=== PATIENT | male | born 1990 | race Caucasian/White ===

== ENCOUNTER 2016-08-23 11:07 | Emergency (ER) | payer MEDICAID ==
[2016-08-23] MEDS ORDERED: Ketorolac 60 MG/2 ML SDV IM ONE (11:54)
--- NOTE | 2016-08-23 12:03 | EDM.PDOC ---
ED HPI GENERAL MEDICAL PROBLEM - General Chief Complaint: Lower Extremity Injury/Pain Stated Complaint: PAIN IN LEFT ANKLE X 2 DAYS Time Seen by Provider: 08/23/16 11:50 Source of Information: Reports: Patient History Limitations: Reports: No Limitations - History of Present Illness INITIAL COMMENTS - FREE TEXT/NARRATIVE: History of present illness: [26-year-old male presenting with complaints of left ankle pain. Patient indicates that he has no trauma that he just was mowing the lawn yesterday and now he has significant ankle pain specifically to the posterior aspect right epiphyseal.] Review of systems: As per history of present illness and below otherwise all systems reviewed and negative. Past medical history: As per history of present illness and as reviewed below otherwise noncontributory. Surgical history: As per history of present illness and as reviewed below otherwise noncontributory. Social history: No reported history of drug or alcohol abuse. Family history: As per history of present illness and as reviewed below otherwise noncontributory. Physical exam: HEENT: Atraumatic, normocephalic, pupils reactive, negative for conjunctival pallor or scleral icterus, mucous membranes moist, throat clear, neck supple, nontender, trachea midline. Lungs: Clear to auscultation, breath sounds equal bilaterally, chest nontender. Heart: S1S2, regular, negative for clicks, rubs, or JVD. Abdomen: Soft, nondistended, nontender. Negative for masses or hepatosplenomegaly. Negative for costovertebral tenderness. Pelvis: Stable nontender. Genitourinary: Deferred. Rectal: Deferred. Extremities: Atraumatic, negative for cords or calf pain. Neurovascular unremarkable. Neuro: Awake, alert, oriented. Cranial nerves II through XII unremarkable. Cerebellum unremarkable. Motor and sensory unremarkable throughout. Exam nonfocal. Patient's Global assessment is benign ankle is atraumatic without any swelling, or ecchymosis patient indicates some amount of tenderness on palpation. Diagnostics: [X-ray of ankle] Therapeutics: [60 mg Toradol IM] Impression: [Ankle pain] Plan: [NSAIDs follow up with primary care provider] Definitive disposition and diagnosis as appropriate pending reevaluation and review of above. Left Ankle Pain Score (Numeric/FACES): 10 - Related Data Allergies Allergy/AdvReac Type Severity Reaction Status Date / Time No Known Allergies Allergy Verified 08/23/16 11:30 Home Meds: Home Meds . [No Known Home Meds] 08/23/16 [History] Past Medical History - Past Health History Medical/Surgical History: Denies Medical/Surgical History Social & Family History - Tobacco Use Smoking Status *Q: Never Smoker Second Hand Smoke Exposure: No - Caffeine Use Caffeine Use: Reports: Coffee, Soda - Recreational Drug Use Recreational Drug Use: No Review of Systems - Review of Systems Review Of Systems: See Below (See history of present illness) ED EXAM, GENERAL - Physical Exam Exam: See Below (History of present illness) Course - Vital Signs Last Recorded V/S: Last Vital Signs Temp 36.8 C 08/23/16 11:29 Pulse 80 08/23/16 11:29 Resp 18 08/23/16 11:29 BP 127/58 L 08/23/16 11:29 Pulse Ox 98 08/23/16 11:29 - Orders/Labs/Meds Meds: Medications Discontinued Medications Generic Name Dose Route Start Last Admin Trade Name Karin PRN Reason Stop Dose Admin Ketorolac Tromethamine 60 mg 08/23/16 11:54 08/23/16 12:01 Toradol IM 08/23/16 11:55 60 mg ONETIME ONE Administration Departure - Departure Time of Disposition: 13:00 Disposition: Home, Self-Care 01 Condition: good Clinical Impression: Ankle pain, left - Discharge Information Forms: ED Department Discharge Additional Instructions: The following information is given to patients seen in the emergency department who are being discharged to home. This information is to outline your options for follow-up care. We provide all patients seen in our emergency department with a follow-up referral. The need for follow-up, as well as the timing and circumstances, are variable depending upon the specifics of your emergency department visit. If you don't have a primary care physician on staff, we will provide you with a referral. We always advise you to contact your personal physician following an emergency department visit to inform them of the circumstance of the visit and for follow-up with them and/or the need for any referrals to a consulting specialist. The emergency department will also refer you to a specialist when appropriate. This referral assures that you have the opportunity for follow-up care with a specialist. All of these measure are taken in an effort to provide you with optimal care, which includes your follow-up. Under all circumstances we always encourage you to contact your private physician who remains a resource for coordinating your care. When calling for follow-up care, please make the office aware that this follow-up is from your recent emergency room visit. If for any reason you are refused follow-up, please contact the [facility] Emergency Department at and asked to speak to the emergency department charge nurse. Take medication as prescribed Follow-up with PCP in 1-2 days Return to ED as needed as discussed
--- NOTE | 2016-08-23 12:33 | CR ---
EXAMINATION: Left ankle HISTORY: Pain COMPARISON: None TECHNIQUE: 3 views FINDINGS/IMPRESSION: There is no acute osseous abnormality, dislocation, or fracture identified. Bon e mineralization and joint spaces are grossly preserved. Ankle mortise and talar dome appear intact.
[2016-08-23 13:14] VITALS: BP 121/68
== END 2016-08-23 13:13 | disposition home or self-care (01) ==
LOC: MW.ED 11:07
DX: M25.572 Pain in left ankle and joints of left foot (principal)
CPT/HCPCS: 73610; 96374; 99283; J1885

== ENCOUNTER 2017-07-03 16:02 | Emergency (ER) | payer MEDICAID, OTHER ==
[2017-07-03 16:28] VITALS: BP 136/79
[2017-07-03] MEDS ORDERED: Alum Hydrox/Mag Hydrox/Simeth 15 ML, Metoclopramide 5 MG, Lidocaine 2% 5 ML PO ONE ×3 (16:35)
--- NOTE | 2017-07-03 16:38 | EDM.PDOC ---
ED HPI GENERAL MEDICAL PROBLEM - General Chief Complaint: Abdominal Pain Stated Complaint: ABDOMINAL/CHEST PAIN Time Seen by Provider: 07/03/17 16:34 Source of Information: Reports: Patient, Family History Limitations: Reports: No Limitations - History of Present Illness INITIAL COMMENTS - FREE TEXT/NARRATIVE: HISTORY AND PHYSICAL: [] 27-year-old male presenting with esophageal type of History of Present Illness: Patient states he was treated for H. pylori last year ending treatment in June Today when he woke from his nap he experienced mid chest pain to the esophageal area same symptoms as previously when he had H. pylori bacteria []Patient works nights and was sleeping this morning and so when he awakened the pain began Review of Systems: As per history of present illness and below otherwise all systems reviewed and negative. Past medical history: As per history of present illness and as reviewed below otherwise noncontributory. Surgical history: As per history of present illness and as reviewed below otherwise noncontributory. Social history: No reported history of drug or alcohol abuse. Family history: As per history of present illness and as reviewed below otherwise noncontributory. Physical exam: Alert and oriented speaking well in full sentences without any shortness of breath HEENT: Atraumatic, normocehpalic, pupils reactive, negative for conjunctival pallor or scleral icterus, mucous membranes moist, throat clear, neck supple, nontender, trachea midline. Lungs: Clear to auscultation, breath sounds equal bilaterally, chest non tender. Heart: S1S2, regular, negative for clicks, rubs, or JVD. Abdomen: Soft, nondistended, tender to mid epigastric region. Negative for masses or hepatossplenmegaly. Negative for costovertebral tenderness. Pelvis: Stable nontender. Genitourinary: Deferred. Rectal: Deferred Extremities: Atraumatic, negative for cords or calf pain. Neurovascular unremarkable. Neuro: Awake, alert, oriented. Cranial nerves II through XII unremarkable. Cerebellum unremarkable. Motor and sensory unremarkable throughout. Exam nonfocal. Discussed with the patient and significant other that the H. pylori and lab work all looked very good. No signs of infection were present Diagnostics: []CBC CMP H. pylori Therapeutics: []GI cocktail Impression: []Epigastric pain Plan: []Discharged home Recommended Pepcid or them daily Follow-up with your primary care provider Dr. Mora Return to ER is directed Definitive disposition and diagnosis as appropriate pending reevaluation and review of above. Onset: Today, Sudden Duration: Hour(s): Location: Reports: Abdomen Quality: Reports: Same as Previous Episode Severity: Moderate esphogeal Pain Score (Numeric/FACES): 3 - Related Data Allergies Allergy/AdvReac Type Severity Reaction Status Date / Time No Known Allergies Allergy Verified 08/23/16 11:30 Home Meds: Home Meds Meloxicam 7.5 mg PO BID #30 tablet 08/23/16 [Rx] Past Medical History - Past Health History Medical/Surgical History: Denies Medical/Surgical History - Infectious Disease History Infectious Disease History: Reports: None Social & Family History - Family History Family Medical History: Noncontributory - Tobacco Use Smoking Status *Q: Never Smoker Second Hand Smoke Exposure: No - Caffeine Use Caffeine Use: Reports: Coffee, Energy Drinks - Recreational Drug Use Recreational Drug Use: Yes Drug Use in Last 12 Months: Yes Recreational Drug Type: Reports: Marijuana/Hashish Recreational Drug Use Frequency: Weekly ED ROS GENERAL - Review of Systems Review Of Systems: ROS reveals no pertinent complaints other than HPI. ED EXAM, GI/ABD - Physical Exam Exam: See Below (see dictation) Course - Vital Signs Last Recorded V/S: Last Vital Signs Temp 36.0 C 07/03/17 16:24 Pulse 60 07/03/17 16:24 Resp 16 07/03/17 16:24 BP 136/79 07/03/17 16:24 Pulse Ox 97 07/03/17 16:24 - Orders/Labs/Meds Labs: Laboratory Tests 07/03/17 07/03/17 07/03/17 Range/Units 17:02 17:02 17:02 WBC 8.91 (4.0-11.0) K/uL RBC 4.74 (4.50-5.90) M/uL Hgb 13.4 (13.0-17.0) g/dL Hct 40.1 (38.0-50.0) % MCV 84.6 (80.0-98.0) fL MCH 28.3 (27.0-32.0) pg MCHC 33.4 (31.0-37.0) g/dL RDW Std Deviation 39.8 (28.0-62.0) fl RDW Coeff of Jorden 13 (11.0-15.0) % Plt Count 237 (150-400) K/uL MPV 9.80 (7.40-12.00) fL Neut % (Auto) 64.9 (48.0-80.0) % Lymph % (Auto) 24.4 (16.0-40.0) % Blair % (Auto) 7.9 (0.0-15.0) % Eos % (Auto) 2.6 (0.0-7.0) % Baso % (Auto) 0.2 (0.0-1.5) % Neut # (Auto) 5.8 H (1.4-5.7) K/uL Lymph # (Auto) 2.2 (0.6-2.4) K/uL Blair # (Auto) 0.7 (0.0-0.8) K/uL Eos # (Auto) 0.2 (0.0-0.7) K/uL Baso # (Auto) 0.0 (0.0-0.1) K/uL Sodium 139 (136-148) mmol/L Potassium 3.9 (3.5-5.1) mmol/L Chloride 105 (98-107) mmol/L Carbon Dioxide 25.5 (21.0-32.0) mmol/L BUN 15 (7.0-18.0) mg/dL Creatinine 1.0 (0.8-1.3) mg/dL Est Cr Clr Drug Dosing 108.30 mL/min Estimated GFR (MDRD) > 60.0 ml/min Glucose 80 (74-106) mg/dL Calcium 9.2 (8.5-10.1) mg/dL Total Bilirubin 0.3 (0.2-1.0) mg/dL AST 24 (15-37) IU/L ALT 30 (14-63) IU/L Alkaline Phosphatase 50 (46-116) U/L Total Protein 7.3 (6.4-8.2) g/dL Albumin 4.1 (3.4-5.0) g/dL Globulin 3.2 (2.0-3.5) g/dL Albumin/Globulin Ratio 1.3 (1.3-2.8) H. pylori IgG Antibody NEGATIVE (NEG) Meds: Medications Discontinued Medications Generic Name Dose Route Start Last Admin Trade Name Freq PRN Reason Stop Dose Admin Al Hydroxide/Mg Hydroxide 15 0 ml 07/03/17 16:35 07/03/17 17:05 ml/ Metoclopramide HCl 5 mg/ PO 07/03/17 16:36 25 each Lidocaine HCl 5 ml ONETIME ONE Administration Departure - Departure Time of Disposition: 18:14 Disposition: Home, Self-Care 01 Condition: Good Clinical Impression: Esophagitis - Discharge Information Instructions: Esophagitis Referrals: PCP,None [Primary Care Provider] - Forms: ED Department Discharge Additional Instructions: The following information is given to patients seen in the emergency department who are being discharged to home. This information is to outline your options for follow-up care. We provide all patients seen in our emergency department with a follow-up referral. The need for follow-up, as well as the timing and circumstances, are variable depending upon the specifics of your emergency department visit. If you don't have a primary care physician on staff, we will provide you with a referral. We always advise you to contact your personal physician following an emergency department visit to inform them of the circumstance of the visit and for follow-up with them and/or the need for any referrals to a consulting specialist. The emergency department will also refer you to a specialist when appropriate. This referral assures that you have the opportunity for followup care with a specialist. All of these measure are taken in an effort to provide you with optimal care, which includes your followup. Under all circumstances we always encourage you to contact your private physician who remains a resource for coordinating your care. When calling for followup care, please make the office aware that this follow-up is from your recent emergency room visit. If for any reason you are refused follow-up, please contact the [facility] emergency department at and asked to speak to the emergency department charge nurse. He had epigastric pain could cause some esophagitis which is inflammation into the esophagus Please follow-up with your primary care provider Dr. Mora Have recommended Pepcid or proton pump inhibitor on a daily basis Return to the emergency department should your symptoms worsen in intensity history as directed and discussed
[2017-07-03 17:47] LABS: CHLORIDE,CL 105 mmol/L (98-107); SODIUM,NA 139 mmol/L (136-148)
== END 2017-07-03 18:35 | disposition home or self-care (01) ==
LOC: MW.ED 16:02
DX: K20.9 Esophagitis, unspecified (principal); Z79.899 Other long term (current) drug therapy
CPT/HCPCS: 36415; 80053; 85025; 86677; 99283; A9270

== ENCOUNTER 2017-09-18 08:06 | Emergency (ER) | payer MEDICAID ==
--- NOTE | 2017-09-18 08:39 | EDM.PDOC ---
ED HPI GENERAL MEDICAL PROBLEM - General Chief Complaint: Genitourinary Problem Stated Complaint: blood in urine Time Seen by Provider: 09/18/17 08:21 - History of Present Illness INITIAL COMMENTS - FREE TEXT/NARRATIVE: HISTORY AND PHYSICAL: History of present illness: The patient is a healthy 27y/o male who presents with one episode of seeing blood in his urine this morning when he woke up and went to the bathroom. The patient denies any trauma and has no fevers chills flank pain abdominal pain testicular pain or swelling and says that both at home and when he gave a urine sample here he had a slight burning sensation at the end of urination. He has no pressure with urination. He says he tries to hydrate and he is in a monogamous relationship. Patient has no other systemic complaints. Patient denies any history Review of systems: As per history of present illness and below otherwise all systems reviewed and negative. Past medical history: As per history of present illness and as reviewed below otherwise noncontributory. Surgical history: As per history of present illness and as reviewed below otherwise noncontributory. Social history: No reported history of drug or alcohol abuse. Family history: As per history of present illness and as reviewed below otherwise noncontributory. Physical exam: General: Well-developed well-nourished man who is nontoxic and ambulatory in the ED. Vital signs are reviewed by me. HEENT: Atraumatic, normocephalic, negative for conjunctival pallor or scleral icterus, mucous membranes moist, throat clear, neck supple, nontender, trachea midline. Lungs: Clear to auscultation, breath sounds equal bilaterally, chest nontender. Heart: S1S2, regular rate and rhythm no overt murmurs Abdomen: Soft, nondistended, nontender. . Negative for costovertebral tenderness. Pelvis: Deferred Genitourinary: Deferred. Rectal: Deferred. Extremities: Atraumatic, negative for cords or calf pain. Neurovascular unremarkable. Neuro: Awake, alert, oriented. Cranial nerves II through XII unremarkable. Cerebellum unremarkable. Motor and sensory unremarkable throughout. Exam nonfocal. Diagnostics: UA urine for STD testing urine culture It was discussed with the patient about testing for STDs and he is requesting that and comfortable with that Therapeutics: Rocephin and Zithromax I discussed with the patient my concerns and need for follow-up with provider in the clinic or urology. We discussed hydration and other potential causes and he will follow-up. Impression: Urethritis Definitive disposition and diagnosis as appropriate pending reevaluation and review of above. Penile Pain Score (Numeric/FACES): 2 - Related Data Allergies Allergy/AdvReac Type Severity Reaction Status Date / Time No Known Allergies Allergy Verified 08/23/16 11:30 Home Meds: Home Meds Meloxicam 7.5 mg PO BID #30 tablet 08/23/16 [Rx] Past Medical History - Past Health History Medical/Surgical History: Denies Medical/Surgical History - Infectious Disease History Infectious Disease History: Reports: None Social & Family History - Family History Family Medical History: Noncontributory - Tobacco Use Smoking Status *Q: Never Smoker - Caffeine Use Caffeine Use: Reports: Coffee, Energy Drinks - Recreational Drug Use Recreational Drug Use: Yes Drug Use in Last 12 Months: Yes Recreational Drug Type: Reports: Marijuana/Hashish Recreational Drug Use Frequency: Weekly ED ROS GENERAL - Review of Systems Review Of Systems: ROS reveals no pertinent complaints other than HPI. ED EXAM, GENERAL - Physical Exam Exam: See Below (see Dictation) Course - Vital Signs Last Recorded V/S: Last Vital Signs Temp 36.3 C 09/18/17 08:17 Pulse 77 09/18/17 08:17 Resp 18 09/18/17 08:17 BP 128/81 09/18/17 08:17 Pulse Ox 97 09/18/17 08:17 - Orders/Labs/Meds Orders: Active Orders 24 hr Category Date Time Status CHLAMYDIA AND GONORRHEA BY TMA Stat Lab 09/18/17 08:16 Received CULTURE URINE [RM] Stat Lab 09/18/17 08:51 Ordered UA W/MICROSCOPIC [URIN] Stat Lab 09/18/17 08:16 Ordered Azithromycin [Zithromax] Med 09/18/17 08:51 Once 1,000 mg PO ONETIME ONE cefTRIAXone [Rocephin] 250 mg Med 09/18/17 08:51 Ordered Lidocaine 1% [Xylocaine-MPF 1%] 1 ml IM ONETIME Medication Orders Azithromycin (Zithromax) 1,000 mg PO ONETIME ONE Stop: 09/18/17 08:52 Ceftriaxone Sodium 250 mg/ (Lidocaine HCl) 1 mls @ 1 mls/sec IM ONETIME ONE Stop: 09/18/17 08:52 Labs: Laboratory Tests 09/18/17 Range/Units 08:16 Urine Color YELLOW Urine Appearance CLEAR Urine pH 8.0 (5.0-8.0) Ur Specific Orr 1.020 (1.001-1.035) Urine Protein NEGATIVE (NEGATIVE) mg/dL Urine Glucose (UA) NEGATIVE (NEGATIVE) mg/dL Urine Ketones NEGATIVE (NEGATIVE) mg/dL Urine Occult Blood SMALL H (NEGATIVE) Urine Nitrite NEGATIVE (NEGATIVE) Urine Bilirubin NEGATIVE (NEGATIVE) Urine Urobilinogen 0.2 (<2.0) EU/dL Ur Leukocyte Esterase NEGATIVE (NEGATIVE) Urine RBC 4-7 (0-2/HPF) Urine WBC 0-1 (0-5/HPF) Ur Epithelial Cells RARE (NONE-FEW) Urine Bacteria RARE (NEGATIVE) Meds: Medications Generic Name Dose Route Start Last Admin Trade Name Freq PRN Reason Stop Dose Admin Azithromycin 1,000 mg 09/18/17 08:51 Zithromax PO 09/18/17 08:52 ONETIME ONE Ceftriaxone Sodium 250 mg/ 1 mls @ 1 mls/sec 09/18/17 08:51 Lidocaine HCl IM 09/18/17 08:52 ONETIME ONE Departure - Departure Time of Disposition: 08:52 Disposition: Home, Self-Care 01 Condition: Good Clinical Impression: Urethritis - Discharge Information Referrals: PCP,None [Primary Care Provider] - Forms: ED Department Discharge Additional Instructions: The following information is given to patients seen in the emergency department who are being discharged to home. This information is to outline your options for follow-up care. We provide all patients seen in our emergency department with a follow-up referral. The need for follow-up, as well as the timing and circumstances, are variable depending upon the specifics of your emergency department visit. If you don't have a primary care physician on staff, we will provide you with a referral. We always advise you to contact your personal physician following an emergency department visit to inform them of the circumstance of the visit and for follow-up with them and/or the need for any referrals to a consulting specialist. The emergency department will also refer you to a specialist when appropriate. This referral assures that you have the opportunity for followup care with a specialist. All of these measure are taken in an effort to provide you with optimal care, which includes your followup. Under all circumstances we always encourage you to contact your private physician who remains a resource for coordinating your care. When calling for followup care, please make the office aware that this follow-up is from your recent emergency room visit. If for any reason you are refused follow-up, please contact the emergency department at and ask to speak to the emergency department charge nurse. [facility]- Internal Medicine and [facility] [address] [place] [id number] [facility]-Urology [address] [place] [id number] Push hydration and take antibiotics as directed until they're finished. Please call and schedule a follow-up appointment with your provider in the clinic or with our urologist for further care and evaluation. Return to ER as needed and as discussed. Continue to monitor the symptoms and discuss this with your provider in the clinic - My Orders Last 24 Hours: My Active Orders 09/18/17 08:16 CHLAMYDIA AND GONORRHEA BY TMA Stat UA W/MICROSCOPIC [URIN] Stat 09/18/17 08:51 CULTURE URINE [RM] Stat Azithromycin [Zithromax] 1,000 mg PO ONETIME ONE cefTRIAXone [Rocephin] 250 mg Lidocaine 1% [Xylocaine-MPF 1%] 1 ml IM ONETIME - Assessment/Plan Last 24 Hours: My Active Orders 09/18/17 08:16 CHLAMYDIA AND GONORRHEA BY TMA Stat UA W/MICROSCOPIC [URIN] Stat 09/18/17 08:51 CULTURE URINE [RM] Stat Azithromycin [Zithromax] 1,000 mg PO ONETIME ONE cefTRIAXone [Rocephin] 250 mg Lidocaine 1% [Xylocaine-MPF 1%] 1 ml IM ONETIME
[2017-09-18] MEDS ORDERED: cefTRIAXone 250 MG in Lidocaine 1% 1 ML IM ONE (08:51)
[2017-09-18] MEDS ORDERED: Azithromycin 250 MG Tab PO ONE (08:51)
[2017-09-18 09:24] VITALS: BP 113/72
== END 2017-09-18 09:41 | disposition home or self-care (01) ==
LOC: MW.ED 08:06
DX: N34.2 Other urethritis (principal)
CPT/HCPCS: 81001; 87086; 87491; 87591; 99283; A9270

== ENCOUNTER 2018-11-14 10:03 | Emergency (ER) | payer MEDICAID ==
--- NOTE | 2018-11-14 10:06 | EDM.PDOC ---
ED HPI GENERAL MEDICAL PROBLEM - General Stated Complaint: both hands feel numb Time Seen by Provider: 11/14/18 10:03 Source of Information: Reports: Patient History Limitations: Reports: No Limitations - History of Present Illness INITIAL COMMENTS - FREE TEXT/NARRATIVE: HISTORY AND PHYSICAL: History of present illness: Patient is a 28-year-old male who presents to the ED today with concern of left hand numbness and starting numbness in the right. 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 Patient states the left hand is worse and that the sensation is in all of his fingers except his pinky. Patient states last night the symptoms started and his right hand in the same distribution. Patient states he notices his symptoms are worse at night and when he is using the tooth at work. Patient denies any trauma or injury to these areas. Patient denies any health history or any other symptoms or concerns. Patient denies fever, chills, chest pain, shortness of breath, or cough. Denies headache, neck stiff ness, change in vision, syncope, or near syncope. Denies nausea, vomiting, abdominal pain, diarrhea, constipation, or dysuria. Has not noted any blood in urine or stool. Patient has been eating and drinking appropriately. Review of systems: As per history of present illness and below otherwise all systems reviewed and negative. Past medical history: As per history of present illness and as reviewed below otherwise noncontributory. Surgical history: As per history of present illness and as reviewed below otherwise noncontributory. Social history: See social history for further information Family history: As per history of present illness and as reviewed below otherwise noncontributory. Physical exam: General: Patient is alert, oriented, and in no acute distress. Patient sitting comfortably on exam table. HEENT: Atraumatic, normocephalic, pupils equal and reactive bilaterally, negative for conjunctival pallor or scleral icterus, mucous membranes moist, TMs normal bilaterally, throat clear, neck supple, nontender, trachea midline. No drooling or trismus noted. No meningeal signs. No hot potato voice noted. Lungs: Clear to auscultation, breath sounds equal bilaterally, chest nontender. Heart: S1S2, regular rate and rhythm without overt murmur Abdomen: Soft, nondistended, nontender. Negative for masses or hepatosplenomegaly. Negative for costovertebral tenderness. Pelvis: Stable nontender. Genitourinary: Deferred. Rectal: Deferred. Skin: Intact, warm, dry. No lesions or rashes noted. Extremities: Atraumatic, negative for cords or calf pain. Neurovascular unremarkable. Positive Phalen and Tinnel sign bilaterally of upper extremities with reproducable symptoms in all fingers excluding both pinky fingers. Radial pulses are grossly intact bilaterally with capillary refill less than 2 seconds. Patient has full range of motion of bilateral upper extremities without pain or difficulty. Neuro: Awake, alert, oriented. Cranial nerves II through XII unremarkable. Cerebellum unremarkable. Motor and sensory unremarkable throughout. Exam nonfocal. Notes: Discussed the importance for follow-up with primary care provider. Voices understanding and is agreeable to plan of care. Denies any further questions or concerns at this time. Diagnostics: None Therapeutics: Cockup wrist splints Prescription: None Impression: Carpal tunnel, bilateral Plan: 1. Tylenol and/or Ibuprofen as directed for pain management or discomfort. Use the wrist splints as discussed. 2. Follow up with your primary care provider as discussed. Return to the ED as needed and as discussed. Definitive disposition and diagnosis as appropriate pending reevaluation and review of above. Bilateral Hand Pain Score (Numeric/FACES): 0 - Related Data Allergies Allergy/AdvReac Type Severity Reaction Status Date / Time No Known Allergies Allergy Verified 11/14/18 10:17 Home Meds: Home Meds . [No Known Home Meds] 11/14/18 [History] Past Medical History - Past Health History Medical/Surgical History: Denies Medical/Surgical History - Infectious Disease History Infectious Disease History: Reports: None Social & Family History - Family History Family Medical History: Noncontributory - Caffeine Use Caffeine Use: Reports: Coffee, Energy Drinks ED ROS GENERAL - Review of Systems Review Of Systems: ROS reveals no pertinent complaints other than HPI. ED EXAM, GENERAL - Physical Exam Exam: See Below (see dictation) Course - Vital Signs Last Recorded V/S: Last Vital Signs Temp 35.9 C 11/14/18 10:14 Pulse 78 11/14/18 10:14 Resp 18 11/14/18 10:14 BP 138/87 11/14/18 10:14 Pulse Ox 99 11/14/18 10:14 - Orders/Labs/Meds Orders: Active Orders 24 hr Category Date Time Status DME for Discharge [COMM] Stat Oth 11/14/18 10:20 Ordered Departure - Departure Time of Disposition: 10:21 Disposition: Home, Self-Care 01 Clinical Impression: Carpal tunnel syndrome, bilateral - Discharge Information Instructions: Carpal Tunnel Syndrome, [id number] Referrals: PCP,None [Primary Care Provider] - Additional Instructions: The following information is given to patients seen in the emergency department who are being discharged to home. This information is to outline your options for follow-up care. We provide all patients seen in our emergency department with a follow-up referral. The need for follow-up, as well as the timing and circumstances, are variable depending upon the specifics of your emergency department visit. If you don't have a primary care physician on staff, we will provide you with a referral. We always advise you to contact your personal physician following an emergency department visit to inform them of the circumstance of the visit and for follow-up with them and/or the need for any referrals to a consulting specialist. The emergency department will also refer you to a specialist when appropriate. This referral assures that you have the opportunity for follow-up care with a specialist. All of these measure are taken in an effort to provide you with optimal care, which includes your follow-up. Under all circumstances we always encourage you to contact your private physician who remains a resource for coordinating your care. When calling for follow-up care, please make the office aware that this follow-up is from your recent emergency room visit. If for any reason you are refused follow-up, please contact the [facility] Emergency Department at and asked to speak to the emergency department charge nurse. [facility] [address] [place] [address] [id number] [id number] 1. Tylenol and/or Ibuprofen as directed for pain management or discomfort. Use the wrist splints as discussed. 2. Follow up with your primary care provider as discussed. Return to the ED as needed and as discussed. - My Orders Last 24 Hours: My Active Orders 11/14/18 10:20 DME for Discharge [COMM] Stat - Assessment/Plan Last 24 Hours: My Active Orders 11/14/18 10:20 DME for Discharge [COMM] Stat
[2018-11-14 11:23] VITALS: BP 136/70
== END 2018-11-14 10:32 | disposition home or self-care (01) ==
LOC: MW.ED 10:03
DX: G56.03 Carpal tunnel syndrome, bilateral upper limbs (principal)
CPT/HCPCS: 99283

== ENCOUNTER 2023-02-28 19:13 | Emergency (ER) | payer SELFPAY ==
[2023-02-28] MEDS ORDERED: Ondansetron 4 MG Tab.DIS PO ONE (20:20)
[2023-02-28] MEDS ORDERED: Ketorolac 60 MG/2 ML SDV IM ONE (20:20)
[2023-02-28 21:15] LABS: CORONAVIRUS COVID-19 NAA NEGATIVE (NEGATIVE); INFLUENZA A NAA NEGATIVE (NEGATIVE); INFLUENZA B NAA NEGATIVE (NEGATIVE); RESPIRATORY SYNCYTIAL VIR NAA NEGATIVE (NEGATIVE)
[2023-02-28] MEDS ORDERED: Amoxicillin/Clavulanate K 875-125 MG Tab PO ONE (21:17)
[2023-02-28 22:12] VITALS: BP 124/75; PULSE 82
== END 2023-02-28 22:12 | disposition home or self-care (01) ==
LOC: MW.ED 19:13
DX: J32.9 Chronic sinusitis, unspecified (principal); Z20.822 Contact with and (suspected) exposure to COVID-19
CPT/HCPCS: 0241U; 99284; A9270; 99283